=== PATIENT | female | born 1980 | race Caucasian/White ===

== ENCOUNTER 2017-11-29 18:17 | Emergency (ER) | payer OTHER ==
[~2017-11-29] VITALS: Ht 167.6 cm; Wt 55.3 kg
--- NOTE | 2017-11-29 18:20 | ED.ADGEN ---
Adult General Chief Complaint Chief Complaint ".. I ve started swimming again.. and I think I ve gotten swimmer ear.. more here on the Rt...." HPI HPI Patient is a 37 year old female who presents with above hx and complaints of irritation both ears with more discomfort on right. Patient has sensation there is water still ear. Patient has tried use linear no effective results. Bilateral ears canals are somewhat injected. There is wax in both ears. There is obvious on fluid behind right TM. Patient normally healthy. No recent travel. No specific ill contacts. Patient normally follows at [facility]. Review of Systems Review of Systems Constitutional: Denies fever or chills [] Eyes: Denies change in visual acuity, redness, or eye pain [] HENT: Denies nasal congestion or sore throat []complaints of bilateral ear discomfort-more on right Respiratory: Denies cough or shortness of breath [] Cardiovascular: No additional information not addressed in HPI [] GI: Denies abdominal pain, nausea, vomiting, bloody stools or diarrhea [] : Denies dysuria or hematuria [] Musculoskeletal: Denies back pain or joint pain [] Integument: Denies rash or skin lesions [] Neurologic: Denies headache, focal weakness or sensory changes [] Endocrine: Denies polyuria or polydipsia [] All other systems were reviewed and found to be within normal limits, except as documented in this note. Family History Family History Noncontributory Current Medications Current Medications Current Medications Medications (Trade) Dose Ordered Sig/Tamir Start Time Stop Time Status Last Admin Dose Admin Hydrocodone Bitartrate/ Ibuprofen (Vicoprofen 7.5-200) 1 tab 1X ONCE 11/29/17 18:45 11/29/17 18:46 DC 11/29/17 18:51 1 TAB Neomycin/ Polymyxin/ Hydrocortisone (Cortisporin Otic) 1 drop 1X ONCE 11/29/17 18:45 11/29/17 18:46 DC 11/29/17 18:51 1 DROP Allergies Allergies Allergies Coded Allergies Type Severity Reaction Last Updated Verified No Known Drug Allergies 11/29/17 No Physical Exam Physical Exam Constitutional: Well developed, well nourished, moderately acute distress, non- toxic appearance. [] HENT: Normocephalic, atraumatic, bilateral external ears and mouth are injected , bilateral wax impactions, some fluid behind right TM, oropharynx moist, no oral exudates, nose normal. [] Eyes: PERRLA, EOMI, conjunctiva normal, no discharge. [] Neck: Normal range of motion, no tenderness, supple, no stridor. [] Cardiovascular:Heart rate regular rhythm, no murmur [] Lungs & Thorax: Bilateral breath sounds clear to auscultation [] Abdomen: Bowel sounds normal, soft, no tenderness, no masses, no pulsatile masses. [] Skin: Warm, dry, no erythema, no rash. [] Back: No tenderness, no CVA tenderness. [] Extremities: No tenderness, no cyanosis, no clubbing, ROM intact, no edema. [] Neurologic: Alert and oriented X 3, normal motor function, normal sensory function, no focal deficits noted. [] Psychologic: Affect normal, judgement normal, mood normal. [] Current Patient Data Vital Signs Vital Signs Date Time Temp Pulse Resp B/P (MAP) Pulse Ox O2 Delivery O2 Flow Rate FiO2 11/29/17 18:27 98.1 54 16 96 Room Air EKG EKG [] Radiology/Procedures Radiology/Procedures [] Course & Med Decision Making Course & Med Decision Making Pertinent Labs and Imaging studies reviewed. (See chart for details). Stop swimming for next 7 days. Keep water of the ears. Use the proximal once a day at night. Use Cortisporin ear drops 1 drop each ear 4 times a day. Benadryl and Sudafed may be helpful to dry up fluid. Tylenol and ibuprofen for pain. Marked discomfort may take Vicoprofen up 4 times a day. Follow-up primary care. Return if any concerns. We continue use swim ear before and after swimming, when she resumes swimming. [] Final Impression Final Impression 1. Otitis[]-bilateral-primarily external (swimmer's ear) Nir Disclaimer Dragon Disclaimer This electronic medical record was generated, in whole or in part, using a voice recognition dictation system. ROSEMARIE WAGNER MD Nov 29, 2017 18:20
[2017-11-29 18:27] VITALS: BP 122/76
[2017-11-29] MEDS ORDERED: HYDR-79 PO (18:43)
[2017-11-29] MEDS ORDERED: PSEU120T9 PO (18:43)
[2017-11-29] MEDS ORDERED: DIPH25CA58 PO (18:43)
[2017-11-29] MEDS ORDERED: HYDROcodon/IBUPROFEN 7.5/200MG 1 TAB TABLET PO ONE (18:45)
[2017-11-29] MEDS ORDERED: NEOMYCIN/POLYMYXIN/HC OTIC SUSPENSION 10ML BOTTLE. AU ONE (18:45)
== END 2017-11-29 19:07 | disposition home or self-care (01) ==
LOC: ER 18:17
DX: H60.333 Swimmer's ear, bilateral (principal); H60.93 Unspecified otitis externa, bilateral
CPT/HCPCS: 99283

== ENCOUNTER 2017-12-01 20:27 | Emergency (ER) | payer OTHER ==
[~2017-12-01] VITALS: Ht 157.5 cm; Wt 50.8 kg
[~2017-12-01 20:27] MED LIST: DIPH25CA58 PO; HYDR-79 PO; PSEU120T9 PO
[2017-12-01 20:30] VITALS: BP 12/87
[2017-12-01] MEDS ORDERED: CIPR7.5D EACH EAR (20:47)
[2017-12-01] MEDS ORDERED: CIPR500T94 PO (20:48)
[2017-12-01] MEDS ORDERED: MOME17SP NS (20:48)
--- NOTE | 2017-12-01 20:56 | ED.ADGEN ---
Past History Past Medical History: No Pertinent History Past Surgical History: No Surgical History Alcohol Use: Occasionally Drug Use: None Adult General HPI HPI Patient is a 37 year old female who presents with ear pain. Patient states she "got water in her ear" last week. She was evaluated at this emergency room 2 days earlier when she was diagnosed with otitis externa. She was given Vicoprofen for pain as well as Sudafed. She was treated with Cortisporin. Her treatment was adequate but the patient's symptoms have not improved. She has pain and swelling and decreased hearing in the bilateral ears. She has no fever. She has no mastoid tenderness. Review of Systems Review of Systems Constitutional: Denies fever or chills Eyes: Denies change in visual acuity, redness, or eye pain HENT: Denies sore throat Cardiovascular: No additional information Integument: Denies rash or skin lesions Neurologic: Denies headache All other systems were reviewed and found to be within normal limits, except as documented in this note. Current Medications Current Medications Current Medications Medications (Trade) Dose Ordered Sig/Tamir Start Time Stop Time Status Last Admin Dose Admin Ciprofloxacin (Cipro) 500 mg 1X ONCE 12/01/17 21:15 12/01/17 21:16 Allergies Allergies Allergies Coded Allergies Type Severity Reaction Last Updated Verified No Known Drug Allergies 11/29/17 No Physical Exam Physical Exam Constitutional: Well developed, well nourished, no acute distress, non-toxic appearance. HENT: Normocephalic, atraumatic, bilateral external ears normal, external canals are both erythematous and edematous with some debris present. Bilaterally , they do obscure the TMs. There is no mastoid erythema or tenderness. No TMJ pain. Oropharynx moist, no oral exudates, nose normal. Eyes: PERRLA, EOMI, conjunctiva normal Neck: Normal range of motion, no tenderness Cardiovascular:Heart rate regular rhythm Lungs & Thorax: Bilateral breath sounds Skin: Warm, dry, no erythema, no rash. Neurologic: Alert and oriented X 3 EKG EKG [] Radiology/Procedures Radiology/Procedures [] Course & Med Decision Making Course & Med Decision Making Pertinent Labs and Imaging studies reviewed. (See chart for details) Patient is seen again in the ER for otitis media. Her symptoms did not improve after being treated with Cortisporin. Her physical exam is consistent with this diagnosis. Lines, patient will now be treated with oral antibiotics. She is prescribed ciprofloxacin 500 twice a day over the next 10 days. She is encouraged to use Sudafed [id number] and guaifenesin. She is given a prescription for nasal steroid inhaler as well. She is scheduled to get on an airplane in 48 hours. I did warn her of the risk of rupture of TM with pressure changes. She is encouraged to follow-up with her PCP. Final Impression Final Impression Otitis media Nir Disclaimer Nir Disclaimer This electronic medical record was generated, in whole or in part, using a voice recognition dictation system. MIKEY OZUNA DO Dec 01, 2017 20:56
[2017-12-01] MEDS ORDERED: CIPROFLOXACIN HCL 500 MG TABLET PO ONE (21:15)
== END 2017-12-01 20:55 | disposition home or self-care (01) ==
LOC: ER 20:27
DX: H66.93 Otitis media, unspecified, bilateral (principal)
CPT/HCPCS: 99283